=== PATIENT | male | born 1970 | race Caucasian/White ===

== ENCOUNTER 2024-06-20 06:56 | Day surgery (SDC) | payer OTHER ==
[2024-06-20] MEDS ORDERED: Midazolam 1 MG/ML 2 ML SDV ONE (07:19)
[2024-06-20] MEDS ORDERED: fentaNYL 50 MCG/ML SDV ONE (07:19)
[2024-06-20] MEDS ORDERED: Propofol 200 MG/20 ML SDV ONE ×2 (07:19→08:31)
[2024-06-20] MEDS: Lactated Ringers 1,000 ML IV SCH (07:52)
== END 2024-06-20 10:23 | disposition home or self-care (01) ==
LOC: JP.SDS 06:56
PROVIDERS: ATTEND Surgery
DX: D12.4 Benign neoplasm of descending colon (principal); D12.5 Benign neoplasm of sigmoid colon; I10 Essential (primary) hypertension
CPT/HCPCS: 00811; 45385; 88305; J2250; J2704; J3010; J7120

== ENCOUNTER 2024-07-25 07:25 | Day surgery (SDC) | payer OTHER ==
[2024-07-25 07:46] LABS: HEMATOCRIT 48.8 % (38.4-49.7); HEMOGLOBIN 16.6 g/dL (12.9-16.9); MEAN CORPUSCULAR HEMOGLOBIN 31.1 pg (31.6-35.5); MEAN CORPUSCULAR VOLUME 91.6 fL (81.4-99.0); RED BLOOD CELL COUNT 5.33 M/uL (4.14-5.76); WHITE BLOOD CELL COUNT,WBC 6.8 K/uL (3.2-11.0)
[2024-07-25] MEDS: Lactated Ringers 1,000 ML IV SCH (07:54)
[2024-07-25] MEDS ORDERED: Sodium Chloride 0.9% 1,000 ML IV SCH (08:00)
[2024-07-25 08:08] LABS: ALANINE AMINOTRANSFERASE,ALT 30 U/L (12-78); ALBUMIN 3.8 g/dL (3.4-5.0); ALKALINE PHOSPHATASE 84 U/L (46-116); ASPARTATE AMNIOTRANSFERASE,AST 16 U/L (15-37); BILIRUBIN TOTAL 1.2 mg/dL (0.2-1.0); BLOOD UREA NITROGEN,BUN 24 mg/dL (7-18); CALCIUM 9.6 mg/dL (8.5-10.1); CARBON DIOXIDE,CO2 30 mmol/L (21-32); CHLORIDE,CL 103 mmol/L (100-108); CREATININE 1.4 mg/dL (0.8-1.3); EST CRCL DRUG DOSING (CG) 62.53 mL/min; ESTIMATED GFR 59 mL/min (>60); GLUCOSE RANDOM 94 mg/dL (74-106); POTASSIUM,K 3.6 mmol/L (3.6-5.2); PROTEIN TOTAL,TP 7.6 g/dL (6.4-8.2); SODIUM,NA 142 mmol/L (140-148)
[2024-07-25] MEDS: metroNIDAZOLE/Normal Saline 500 MG in Premix Bag 1 BAG IV ONE (08:53)
[2024-07-25] MEDS ORDERED: Propofol 200 MG/20 ML SDV ONE (09:23)
[2024-07-25] MEDS ORDERED: Succinylcholine 200 MG/10 ML MDV ONE (09:23)
[2024-07-25] MEDS ORDERED: fentaNYL 250 MCG/5 ML SDV ONE (09:23)
[2024-07-25] MEDS ORDERED: Ondansetron 4 MG/2 ML SDV ONE (09:23)
[2024-07-25] MEDS ORDERED: Rocuronium 50 MG/5 ML Vial ONE (09:23)
[2024-07-25] MEDS ORDERED: Glycopyrrolate 0.2 MG/ML 5 ML MDV ONE (09:23)
[2024-07-25] MEDS ORDERED: Dexamethasone 4 MG/ML SDV ONE (09:23)
[2024-07-25] MEDS ORDERED: Neostigmine Methylsulfate 10 MG/10 ML MDV ONE (09:23)
[2024-07-25] MEDS: ceFAZolin 2 GM in Premix Bag 1 BAG IV ONE (10:15)
[2024-07-25] MEDS: Bupivacaine 0.5%/EPINEPHrine 1:200,000 50 ML MDV ONE (11:00)
[2024-07-25] MEDS ORDERED: Lactated Ringers 1,000 ML ONE (11:18)
[2024-07-25] MEDS: Acetaminophen/HYDROcodone 325-5 MG Tab PO ONE (13:45)
== END 2024-07-25 14:34 | disposition home or self-care (01) ==
LOC: JP.SDS 07:25
PROVIDERS: ATTEND Surgery
DX: K40.20 Bilateral inguinal hernia, without obstruction or gangrene, not specified as recurrent (principal); I10 Essential (primary) hypertension
CPT/HCPCS: 36415; 80053; 85027; A9270-GY; J0171; J0330; J0690; J1100; J1596; J1836; J2405; J2704; J2710; J2795; J3010; J3490; J7120